=== PATIENT | female | born 1980 | race Caucasian/White ===

== ENCOUNTER 2021-04-30 17:35 | Emergency (ER) | payer OTHER ==
[~2021-04-30] VITALS: Ht 170.2 cm; Wt 71.5 kg
--- NOTE | 2021-04-30 17:40 | PHYS DOC ---
General Adult EDM: Chief Complaint: SHOULDER INJURY HPI: HPI: ".. I ve had problems on the Rt... but now it on the Lt. It hurts so bad.. " Patient is a 40 year old female who presents with above hx and complaints of left shoulder pain. Patient has obvious trapezius muscle spasms on the left. Patient has similar episode on the right. Patient states however is now on the left. Onset occurred when she was lifting her child has 1 leg. Patient states she felt onset of the marked pain in left neck. Patient does have deltoid sensation. Obvious trigger point areas of pain on left shoulder and shoulder blade. Distal neurovascular is equal to right hand. Patient denies any prior neck trauma. Does have pt. follows with Dr. Osman. In the process of moving to [place]. No recent travel. Does have plans to travel to [place] later next week. No severe ill contacts. No history immunosuppression. No history of osteoporosis. Does have history of prior episodes of torticollis Review of Systems: Review of Systems: Constitutional: Denies fever or chills Eyes: Denies change in visual acuity HENT: Denies nasal congestion or sore throat Respiratory: Denies cough or shortness of breath Cardiovascular: Denies chest pain or edema GI: Denies abdominal pain, nausea, vomiting, bloody stools or diarrhea : Denies dysuria Musculoskeletal: Complains of severe spasm left trapezius Integument: Denies rash Neurologic: Denies headache, focal weakness or sensory changes Endocrine: Denies polyuria or polydipsia Lymphatic: Denies swollen glands Psychiatric: Denies depression or anxiety Family History: Family History: Noncontributory to presentation Current Medications: Current Meds: See nursing for home meds Allergies: Allergies: Allergic to sulfa-Bactrim Physical Exam: PE: Constitutional: Moderate acute distress, non-toxic appearance. [] HENT: Normocephalic, atraumatic, bilateral external ears normal, oropharynx moist, no oral exudates, nose normal. [] Eyes: PERRLA, EOMI, conjunctiva normal, no discharge. [] Neck: Normal range of motion, left trapezius muscle spasm tender trigger point tenderness, supple, no stridor. [] Cardiovascular:Heart rate regular rhythm, no murmur [] Lungs & Thorax: Bilateral breath sounds clear to auscultation [] Abdomen: Bowel sounds normal, soft, no tenderness, no masses, no pulsatile masses. [] Skin: Warm, dry, no erythema, no rash. [] Back: No tenderness, no CVA tenderness. [] Extremities: No tenderness, no cyanosis, no clubbing, ROM intact, no edema. [] Neurologic: Alert and oriented X 3, normal motor function, normal sensory function, no focal deficits noted. [DTRs +2 patella brachial. Assistant Professor Of Business equal. R ight-hand dominant. Psychologic: Affect normal, judgement normal, mood normal. [] EKG: EKG: [] Radiology/Procedures: Radiology/Procedures: [][place] [address] IMAGING REPORT Signed PATIENT: MADI TALBOT AACCOUNT: [id number] : 1980 LOCATION: ER AGE: 40 SEX: F EXAM STATUS: REG ER ORD. PHYSICIAN: STEPHANIE GUNDERSON MD REASON: Cervial neuropathic pain - radiates to Lt arm PROCEDURE: CT CERVICAL SPINE WO CONTRAST CT cervical spine without contrast. HISTORY: Neuropathic pain radiating to left arm CT scan of the cervical spine was done without contrast. Acute C-spine fracture is not identified. Thyroid is homogeneous. There is no mass or adenopathy in the neck. Parotid and submandibular glands are unremarkable. C-spine is in normal alignment. Disc spaces are normal in height. There is mild asymmetric bulging of the disc on the left at C6-7. There is no neural foraminal stenosis. There is no spinal stenosis. IMPRESSION: 1. No fracture noted in the cervical spine. 2. Mild disc bulging on the left at C6-7. 3. No other focal disc protrusion. 4. Spine is in normal alignment. PQRS Compliance Statement: One or more of the following individualized dose reduction techniques were utilized for this examination: 1. Automated exposure control 2. Adjustment of the mA and/or kV according to patient size 3. Use of iterative reconstruction technique Electronically signed by: Freddie Faust MD (04/30/2021 6:44 PM) [facility] DICTATED AND SIGNED BY: FREDDIE FAUST MD DATE: 04/30/21 184 CC: STEPHANIE GUNDERSON MD; ANGIE OSMAN ~MTH0 0 Heart Score: C/O Chest Pain: N/A Risk Factors: Risk Factors: DM, Current or recent (<one month) smoker, HTN, HLP, family history of CAD, obesity. Risk Scores: Score 0 - 3: 2.5% MACE over next 6 weeks - Discharge Home Score 4 - 6: 20.3% MACE over next 6 weeks - Admit for Clinical Observation Score 7 - 10: 72.7% MACE over next 6 weeks - Early Invasive Strategies Course & Med Decision Making: Course & Med Decision Making Pertinent Labs and Imaging studies reviewed. (See chart for details) Patient is a fax as needed. Take Tylenol and ibuprofen for pain. For marked pain take Vicoprofen. Take Flexeril 10 mg up to 3 times a day for muscle spasm. Follow-up primary care. Return if any concerns. Massage may be helpful. Consider acupuncture, trigger point injection, lidocaine patches etc. Patient follow-up primary care review CT findings. Use caution and how she manages her pillow recommend towel roll while sleeping at night. If persistent pain well need MRI or intrathecal evaluation for cervical spinal stenosis to fully evaluate findings in neck. Impression: 1. Torticollis-muscle spasm left trapezius 2. Cervical neuropathy 3. Disc bulging C6-7 [] Dragon Disclaimer: [place] Disclaimer: This electronic medical record was generated, in whole or in part, using a voice recognition dictation system. Departure Departure: Referrals: ANGIE OSMAN (PCP) Scripts Hydrocodone/Ibuprofen (HYDROCODONE-IBUPROFEN 7.5-200 ) 1 Each Tablet 1 TAB PO PRN Q6HRS PRN for PAIN, #30 TAB 0 Refills Prov: STEPHANIE GUNDERSON MD 04/30/21 Cyclobenzaprine Hcl (CYCLOBENZAPRINE HCL) 10 Mg Tablet 10 MG PO TID PRN PRN for spasms, #30 TAB Prov: STEPHANIE GUNDERSON MD 04/30/21 Dragon Disclaimer This chart was dictated in whole or in part using Voice Recognition software in a busy, high-work load, and often noisy Emergency Department environment. It may contain unintended and wholly unrecognized errors or omissions. STEPHANIE GUNDERSON MD Apr 30, 2021 17:40
[2021-04-30] MEDS ORDERED: ORPHENADRINE CITRATE 60 MG/2 ML VIAL. IM ONE (18:15)
[2021-04-30] MEDS ORDERED: KETOROLAC 60 MG/2 ML VIAL. IM ONE (18:15)
--- NOTE | 2021-04-30 18:47 | RAD ---
CT cervical spine without contrast. HISTORY: Neuropathic pain radiating to left arm CT scan of the cervical spine was done without contrast. Acute C-spine fracture is not identified. Th yroid is homogeneous. There is no mass or adenopathy in the neck. Parotid and submandibular glands ar e unremarkable. C-spine is in normal alignment. Disc spaces are normal in height. There is mild asymm etric bulging of the disc on the left at C6-7. There is no neural foraminal stenosis. There is no spi nal stenosis. IMPRESSION: 1. No fracture noted in the cervical spine. 2. Mild disc bulging on the left at C6-7. 3. No other focal disc protrusion. 4. Spine is in normal alignment. PQRS Compliance Statement: One or more of the following individualized dose reduction techniques were utilized for this examinat ion: 1. Automated exposure control 2. Adjustment of the mA and/or kV according to patient size 3. Use of iterative reconstruction technique Electronically signed by: Freddie Faust MD (04/30/2021 6:44 PM) [facility]
[2021-04-30] MEDS ORDERED: HYDR-1179 PO (19:01)
[2021-04-30] MEDS ORDERED: CYCL-331 PO (19:01)
[2021-04-30 19:42] VITALS: BP 144/94
== END 2021-04-30 19:54 | disposition home or self-care (01) ==
LOC: ER 17:35
DX: S16.9XXA Unspecified injury of muscle, fascia and tendon at neck level, initial encounter (principal); M62.838 Other muscle spasm; G62.9 Polyneuropathy, unspecified; Z88.2 Allergy status to sulfonamides; X50.0XXA Overexertion from strenuous movement or load, initial encounter; Y93.89 Activity, other specified; Y92.89 Other specified places as the place of occurrence of the external cause; Y99.8 Other external cause status
CPT/HCPCS: 72125; 96372; 99284; J1885; J2360